=== PATIENT | female | born 2000 | race Caucasian/White ===

== ENCOUNTER 2022-10-07 07:35 | Observation (INO) | payer SELFPAY ==
[~2022-10-07] VITALS: Ht 167.6 cm; Wt 74.4 kg
[2022-10-07 08:30] VITALS: BP 108/62
[2022-10-07] MEDS ORDERED: PREN-556 PO (09:54)
[2022-10-07] MEDS ORDERED: AMPICILLIN 2,000 MG VIAL ONE (10:20)
[2022-10-07] MEDS ORDERED: CEPH-588 PO (12:22)
== END 2022-10-07 10:20 | disposition home or self-care (01) ==
LOC: MLD 07:35
PROVIDERS: ADMIT Obstetrics & Gynecology; ATTEND Obstetrics & Gynecology
DX: O26.892 Other specified pregnancy related conditions, second trimester (principal); Z20.822 Contact with and (suspected) exposure to COVID-19; R10.2 Pelvic and perineal pain; O99.891 Other specified diseases and conditions complicating pregnancy; M79.606 Pain in leg, unspecified; Z3A.20 20 weeks gestation of pregnancy
CPT/HCPCS: 59025; 76817; 87426; G0378; J0290; Q0092

== ENCOUNTER 2022-10-07 10:17 | Emergency (ER) | payer SELFPAY ==
[~2022-10-07] VITALS: Ht 172.7 cm; Wt 83.9 kg
[~2022-10-07 10:17] MED LIST: PREN-556 PO
[2022-10-07 10:42] VITALS: BP 111/76
--- NOTE | 2022-10-07 10:52 | NUR ---
PT AMB TO BED 12.
--- NOTE | 2022-10-07 10:55 | NUR ---
Note braeden in EDM - 10/07/22 at 1055 by MNURBMD C/O LOWER BACK PAIN , HEADACHE XTODAY, C/O RUNNY NOSE X YESTERDAY. LMP 05/15/22. 20 WEEKS .
--- NOTE | 2022-10-07 10:55 | NUR ---
22 Y/O FEMALE BIB SELF C/O LOW BACK PAIN, MICHEL, RUNNY NOSE X1 DAY. DENIES ANY OTHER UA S/S. DENIES ANY NVD, G1. 20 WEEKS NKA PMH: DENIES
[2022-10-07] MEDS ORDERED: ACETAMINOPHEN EXTRA STRENGTH 500 MG TAB PO ONE (11:00)
[2022-10-07 11:24] LABS: BILIRUBIN,URINE NEGATIVE (NEGATIVE); BLOOD, URINE NEGATIVE (NEGATIVE); COLOR,URINE YELLOW (YELLOW); LEUKOCYTE ESTERASE ,URINE 1+ (NEGATIVE); NITRITE, URINE NEGATIVE (NEGATIVE); UGLUCOSE NEGATIVE (NEGATIVE)
[2022-10-07 11:27] LABS: APPEARANCE,URINE HAZY (CLEAR)
[2022-10-07 11:38] LABS: RBC,URINE NONE SEEN /HPF (0-5); WBC,URINE 0-5 /HPF (0-5)
[2022-10-07] MEDS ORDERED: cefTRIAXone 1,000 MG in LIDOCAINE MPF 1% 2.1 ML IM ONE (12:20)
[2022-10-07] MEDS ORDERED: CEPH-588 PO (12:22)
[2022-10-07] MEDS ORDERED: LIDOCAINE MPF 1% 5 ML ONE (12:31)
[2022-10-07] MEDS ORDERED: cefTRIAXone 1,000 MG VIAL ONE (12:31)
[2022-10-07 12:54] VITALS: BP 111/57
--- NOTE | 2022-10-07 12:54 | NUR ---
Patient discharged with v/s stable. Written and verbal after care instructions ABOUT UTI given and explained. Patient alert, oriented and verbalized understanding of instructions. Ambulatory with steady gait. All questions addressed prior to discharge. ID band removed. Patient advised to follow up with PMD. Rx of KEFLEX given. Patient educated on indication of medication including possible reaction and side effects. Opportunity to ask questions provided and answered.
--- NOTE | 2022-10-09 11:00 | NUR ---
LATE ENTRY. RECEIVED POSITIVE URINE CULTURE. FORM GIVEN TO DR PRITCHETT. TREATMENT APPROPRIATE. FORM PLACED IN BINDER
== END 2022-10-07 12:54 | disposition home or self-care (01) ==
LOC: MED 10:17
DX: O23.41 Unspecified infection of urinary tract in pregnancy, first trimester (principal); N39.0 Urinary tract infection, site not specified; Z3A.01 Less than 8 weeks gestation of pregnancy
CPT/HCPCS: 81001; 81025; 87086; 87804; 96372; 99284; J0696; J2001

== ENCOUNTER 2023-02-13 13:00 | Observation (INO) | payer MEDICAID ==
[~2023-02-13] VITALS: Ht 170.2 cm; Wt 92.1 kg
[~2023-02-13 13:00] MED LIST changes: +CEPH-588 PO
[2023-02-13 13:55] VITALS: BP 108/57
[2023-02-14] MEDS ORDERED: PNV1TABL5 PO (20:10)
== END 2023-02-13 14:15 | disposition home or self-care (01) ==
LOC: MLD 13:00
PROVIDERS: ADMIT Obstetrics & Gynecology; ATTEND Obstetrics & Gynecology
DX: O62.9 Abnormality of forces of labor, unspecified (principal); Z20.822 Contact with and (suspected) exposure to COVID-19; O42.92 Full-term premature rupture of membranes, unspecified as to length of time between rupture and onset of labor; Z3A.38 38 weeks gestation of pregnancy
CPT/HCPCS: 59025; 81000; 87426; G0378; G0379

== ENCOUNTER 2023-02-14 19:08 | Observation (INO) | payer MEDICAID ==
[~2023-02-14] VITALS: Ht 170.2 cm; Wt 92.1 kg
[2023-02-14 19:25] VITALS: BP 107/61
[2023-02-14] MEDS ORDERED: PNV1TABL5 PO (20:10)
== END 2023-02-14 20:20 | disposition home or self-care (01) ==
LOC: MLD 19:08
PROVIDERS: ADMIT Obstetrics & Gynecology; ATTEND Obstetrics & Gynecology
DX: O46.93 Antepartum hemorrhage, unspecified, third trimester (principal); O62.9 Abnormality of forces of labor, unspecified; Z3A.39 39 weeks gestation of pregnancy
CPT/HCPCS: 59025; 81000; G0378

== ENCOUNTER 2023-02-18 10:27 | Inpatient (IN) | payer MEDICAID ==
[~2023-02-18] VITALS: Ht 170.2 cm; Wt 92.5 kg
[~2023-02-18 10:27] MED LIST changes: -CEPH-588 PO; +PNV1TABL5 PO; -PREN-556 PO
[2023-02-18] MEDS ORDERED: PRETAB PO (10:43)
[2023-02-18 10:49] VITALS: BP 120/66
[2023-02-18] MEDS ORDERED: METHYLERGONOVINE 0.2 MG/ML AMP IM PRN (11:00)
[2023-02-18] MEDS ORDERED: LACTATED RINGERS 500 ML IV SCH (11:00)
[2023-02-18] MEDS ORDERED: NALBUPHINE 10 MG/ML AMP IVP PRN (11:00)
[2023-02-18] MEDS ORDERED: CARBOPROST 250 MCG/ML AMP IM PRN (11:00)
[2023-02-18 11:28] LABS: APPEARANCE,URINE CLEAR (CLEAR); BILIRUBIN,URINE NEGATIVE (NEGATIVE); BLOOD, URINE 3+ (NEGATIVE); COLOR,URINE YELLOW (YELLOW); LEUKOCYTE ESTERASE ,URINE 2+ (NEGATIVE); NITRITE, URINE NEGATIVE (NEGATIVE); UGLUCOSE NEGATIVE (NEGATIVE)
[2023-02-18 11:34] LABS: BASOPHILS % (AUTO) 0.3 % (0.0-2.0); EOSINOPHILS # (AUTO) 0.1 K/uL (0-0.4); EOSINOPHILS % (AUTO) 0.5 % (0.0-4.0); HEMATOCRIT 33.8 % (36-48); HEMOGLOBIN 11.2 g/dL (12.0-16.0); LYMPHOCYTES # (AUTO) 2.1 K/uL (2.5-16.5); LYMPHOCYTES % (AUTO) 18.4 % (20.5-51.1); MEAN CORPUSCULAR HEMOGLOBIN 27 pg (27-31); MEAN CORPUSCULAR HGB CONC 33 g/dL (33-37); MEAN CORPUSCULAR VOLUME 82.5 fL (80-94); MONOCYTES # (AUTO) 1.3 K/uL (0.8-1.0); MONOCYTES % (AUTO) 10.9 % (1.7-9.3); NEUTROPHILS % (AUTO) 69.9 % (42.2-75.2); PLATELET COUNT (AUTO) 162 K/uL (140-450); WHITE BLOOD COUNT (AUTO) 11.5 K/uL (4.8-10.8)
[2023-02-18 11:49] LABS: PROTHROMBIN TIME 9.4 secs (10.8-13.4)
[2023-02-18 11:59] LABS: ALBUMIN 2.6 g/dL (3.4-5.0); ANION GAP 12.7 (8-16); CARBON DIOXIDE 21.2 mmol/L (21-32); CREATININE 0.6 mg/dL (0.6-1.3); POTASSIUM 3.9 mmol/L (3.5-5.1); TOTAL BILIRUBIN 0.2 mg/dL (0.0-1.0)
[2023-02-18] MEDS: LACTATED RINGERS 1,000 ML IV SCH ×2 (12:55→20:17)
[2023-02-18] MEDS: MISOPROSTOL 25 MCG TAB VG PRN ×2 (13:01→21:32)
[2023-02-18] MEDS ORDERED: MISOPROSTOL 25 MCG TAB PO SCH (14:00)
--- NOTE | 2023-02-18 14:58 | NUR ---
PATIENT HAS BEEN SCREENED AND CATEGORIZED LOW NUTRITION RISK. PATIENT WILL BE SEEN WITHIN 7 DAYS OF ADMISSION. 02/25/23 REVIEWED BY EMILIE THOMPSON RD
[2023-02-19] MEDS: MISOPROSTOL 25 MCG TAB VG PRN (01:59)
[2023-02-19] MEDS: LACTATED RINGERS 1,000 ML IV SCH (04:40)
[2023-02-19] MEDS ORDERED: ROPIVACAINE 0.2%/NS PREMIX 200 ML EPI SCH (05:45)
[2023-02-19] MEDS ORDERED: OXYTOCIN 20 UNITS in LACTATED RINGERS 1,000 ML IV SCH ×2 (05:45→12:05)
[2023-02-19] MEDS ORDERED: fentaNYL citrate 0.05 MG/ML VIAL ONE (07:27)
[2023-02-19] MEDS ORDERED: OXYTOCIN 20 UNITS/LR PREMIX 1,000 ML IV ONE ×2 (08:15→12:58)
[2023-02-19] MEDS ORDERED: ceFAZolin 2,000 MG VIAL ONE (11:25)
[2023-02-19] MEDS ORDERED: TEMAZEPAM 15 MG CAP PO PRN (12:05)
[2023-02-19] MEDS ORDERED: KETOROLAC 30 MG/ML VIAL IVP PRN ×2 (12:05→12:45)
[2023-02-19] MEDS ORDERED: IBUPROFEN 800 MG TAB PO PRN (12:05)
[2023-02-19] MEDS ORDERED: METHYLERGONOVINE 0.2 MG/ML AMP IM PRN (12:05)
[2023-02-19] MEDS ORDERED: oxyCODONE/APAP 5/325 MG 1 TAB TAB PO PRN (12:05)
[2023-02-19] MEDS ORDERED: SIMETHICONE 80 MG TAB.CHEW PO PRN (12:05)
[2023-02-19] MEDS ORDERED: LIDOCAINE MPF 2% 100 MG/5 ML VIAL INJ ONE (12:16)
[2023-02-19] MEDS ORDERED: MORPHINE PRES FREE 5 MG/10 ML AMP IV ONE (12:44)
[2023-02-19] MEDS ORDERED: ONDANSETRON 4 MG/2 ML VIAL IVP PRN (12:45)
[2023-02-19] MEDS ORDERED: NALOXONE 0.4 MG/ML VIAL IVP PRN (12:45)
[2023-02-19] MEDS ORDERED: MORPHINE PRES FREE 10 MG/10 ML AMP IV ONE (12:46)
[2023-02-19] MEDS ORDERED: ACETAMINOPHEN 100 ML IV ONE (12:54)
[2023-02-19] MEDS: diphenhydrAMINE 50 MG/ML VIAL IVP PRN (13:25)
[2023-02-19] MEDS: DOCUSATE SOD/SENNA 50/8.6 MG 1 TAB PO SCH (21:00)
[2023-02-19] MEDS: OXYTOCIN 20 UNITS in LACTATED RINGERS 1,000 ML IV SCH (23:05)
[2023-02-20] MEDS: diphenhydrAMINE 50 MG/ML VIAL IVP PRN (00:02)
[2023-02-20 05:32] LABS: BASOPHILS # (AUTO) 0.1 K/uL (0.00-0.22); BASOPHILS % (AUTO) 0.4 % (0.0-2.0); EOSINOPHILS % (AUTO) 0.4 % (0.0-4.0); HEMOGLOBIN 10.6 g/dL (12.0-16.0); LYMPHOCYTES # (AUTO) 1.9 K/uL (2.5-16.5); LYMPHOCYTES % (AUTO) 13.8 % (20.5-51.1); MEAN CORPUSCULAR HEMOGLOBIN 27 pg (27-31); MEAN CORPUSCULAR HGB CONC 33 g/dL (33-37); MEAN CORPUSCULAR VOLUME 82.6 fL (80-94); MONOCYTES # (AUTO) 0.9 K/uL (0.8-1.0); MONOCYTES % (AUTO) 6.8 % (1.7-9.3); NEUTROPHILS # (AUTO) 10.8 K/uL (1.8-7.7); NEUTROPHILS % (AUTO) 78.6 % (42.2-75.2); PLATELET COUNT (AUTO) 144 K/uL (140-450); RED BLOOD CELL COUNT(AUTO) 3.87 MIL/uL (4.20-5.40); RED CELL DISTRIBUTION WIDTH 14.9 % (11.6-13.7); WHITE BLOOD COUNT (AUTO) 13.7 K/uL (4.8-10.8)
[2023-02-20] MEDS ORDERED: OXYTOCIN 20 UNITS/LR PREMIX 1,000 ML IV ONE (06:03)
[2023-02-20] MEDS: OXYTOCIN 20 UNITS in LACTATED RINGERS 1,000 ML IV SCH (07:00)
[2023-02-20] MEDS: oxyCODONE/APAP 5/325 MG 1 TAB TAB PO PRN ×2 (12:12→19:26)
[2023-02-20] MEDS: DOCUSATE SOD/SENNA 50/8.6 MG 1 TAB PO SCH (20:40)
[2023-02-21] MEDS ORDERED: CAMERA MC ONE (03:36)
[2023-02-21] MEDS: oxyCODONE/APAP 5/325 MG 1 TAB TAB PO PRN (06:22)
== END 2023-02-21 15:00 | disposition home or self-care (01) | DRG 540 ==
LOC: MLD 10:27 → MFCC 02-19 13:55
PROVIDERS: ADMIT Obstetrics & Gynecology; ATTEND Obstetrics & Gynecology
PROC: 10D00Z1 Extraction of Products of Conception, Low, Open Approach (ICD-10-PCS; principal; 2023-02-19 12:00)
DX: O48.0 Post-term pregnancy (principal); O62.0 Primary inadequate contractions; Z20.822 Contact with and (suspected) exposure to COVID-19; Z37.0 Single live birth; Z3A.40 40 weeks gestation of pregnancy
CPT/HCPCS: 36415; 51702; 59070; 59200; 80053; 81001; 85025; 85610; 85730; 86592; 86886; 86900; 86901; 87086; J0690; J1200; J1885; J2001; J2270; J2300; J2590; J2795; J3010; J7060; J7120